=== PATIENT | male | born 1950 | race Two or more races ===

== ENCOUNTER 2023-12-04 13:43 | Emergency (ER) | payer OTHER ==
[~2023-12-04] VITALS: Ht 172.7 cm; Wt 81.6 kg
[2023-12-04] MEDS ORDERED: DRAMAMINE LESS25 MG PO (14:07)
[2023-12-04] MEDS ORDERED: OMEPRAZOLE-BIC1 EAC1 PO (14:07)
[2023-12-04] MEDS ORDERED: PEPCID AC20 MG (14:07)
[2023-12-04] MEDS ORDERED: COZAAR100 MG PO (14:07)
[2023-12-04] MEDS ORDERED: ADULT LOW DOSE81 M1 PO (14:07)
[2023-12-04] MEDS ORDERED: LIPITOR40 M1 PO (14:08)
[2023-12-04] MEDS ORDERED: IRON325 MG PO (14:08)
[2023-12-04] MEDS ORDERED: 0.9 % SODIUM CHLORIDE 1,000 ML IV STA (14:48)
[2023-12-04] MEDS ORDERED: FAMOtidine 10 MG/ML (4ML VIAL) IV STA (14:50)
[2023-12-04] MEDS ORDERED: ONDANSETRON HCL 2 MG/ML VIAL IV ONE (15:00)
[2023-12-04 15:47] LABS: HEMATOCRIT 29.3 % (39.0-48.0); HEMOGLOBIN 9.7 g/dL (13-16.00); MEAN CELL VOLUME 97.3 fL (80.0-100.00); MEAN CORPUSCULAR HEMOGLOBIN 32.1 pg (27.00-32.0); PLATELET COUNT 390 K/uL (150-450); RED BLOOD COUNT 3.01 M/uL (4.00-6.00); RED CELL DISTRIBUTION WIDTH 13.6 % (11.5-14.5)
[2023-12-04 16:25] LABS: ALBUMIN 3.1 gm/dL (3.4-5.0); BILIRUBIN TOTAL 0.49 mg/dL (0.3-1.2); BILIRUBIN,CONJUGATED 0.14 mg/dL (0.0-0.2); BILIRUBIN,UNCONJUGATED 0.35 mg/dL (0.0-0.6); CALCIUM 8.5 mg/dL (8.5-10.1); CREATININE SERUM 0.91 mg/dL (0.70-1.30); GFR 81.67; POTASSIUM 4.5 mEq/L (3.5-5.1); TOTAL PROTEIN 6.7 gm/dL (6.4-8.2)
[2023-12-04] MEDS ORDERED: ONDANSETRON ODT8 MG PO (17:07)
== END 2023-12-04 17:15 | disposition home or self-care (01) ==
LOC: ER 13:44
PROVIDERS: General Practice
DX: R10.9 Unspecified abdominal pain (principal); I10 Essential (primary) hypertension
CPT/HCPCS: 36415; 74176; 96365; 96366; 99284; J2405; J3490; J7030

== ENCOUNTER 2023-12-08 13:40 | Emergency (ER) | payer OTHER ==
[~2023-12-08] VITALS: Ht 172.7 cm; Wt 81.6 kg
[~2023-12-08 13:40] MED LIST: ADULT LOW DOSE81 M1 PO; COZAAR100 MG PO; DRAMAMINE LESS25 MG PO; IRON325 MG PO; LIPITOR40 M1 PO; OMEPRAZOLE-BIC1 EAC1 PO; ONDANSETRON ODT8 MG PO; PEPCID AC20 MG
[2023-12-08] MEDS ORDERED: TRAMADOL HCL 50 MG TABLET PO ONE (16:30)
== END 2023-12-08 18:25 | disposition home or self-care (01) ==
LOC: ER 13:41
DX: S29.8XXA Other specified injuries of thorax, initial encounter (principal); W18.39XA Other fall on same level, initial encounter; Y93.89 Activity, other specified; Y92.89 Other specified places as the place of occurrence of the external cause; I10 Essential (primary) hypertension